=== PATIENT | female | born 2000 | race Caucasian/White ===

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

== ENCOUNTER → 2024-12-07 | Day surgery (SDC) | payer OTHER | END | disposition home or self-care (01) | LOC: JRADIR 10:14 | PROVIDERS: ATTEND Advanced Practice Midwife | PROC: BU08YZZ Plain Radiography of Uterus and Fallopian Tubes using Other Contrast (ICD-10-PCS; principal; 2024-12-07) | DX: N97.9 Female infertility, unspecified (principal) | CPT/HCPCS: 58340; 74740-TC-FY; 76000-TC-FY; 84703 ==